=== PATIENT | female | born 1990 | race Asian ===

== ENCOUNTER → 2016-03-23 | Outpatient (CLI) | payer OTHER ==
[~2016-03-23] MED LIST: APR25 PO; HYDR-4715 PO; INDSR60 PO; MAGNEVIST IV PRN; MISC1TAB29; MISC1TAB29 PO; PRED10TA PO; PROP20TA67 PO; RXC5 PO; [UNRECOGNIZED DRUG - CODE] PO
--- NOTE | 2016-03-23 17:18 | DIAGNOSTIC IMAGING REPORT ---
BRAIN AND PITUITARY MRI WITH AND WITHOUT INTRAVENOUS CONTRAST HISTORY: Zacarias disease with tumor removal. TECHNIQUE: Multiplanar multisequence MRI of the brain and pituitary gland were performed both before and after the intravenous administration of contrast. Dynamic postcontrast imaging through the pituitary fossa was also obtained. COMPARISON STUDY: None. FINDINGS: No areas of restricted diffusion to suggest acute infarction. The paranasal sinuses and mastoid air cells are clear. No mass, hematoma, midline shift, acute infarct. Small patchy areas of increased T2 signal within the bilateral posterior occipital lobes predominantly within the subcortical white matter. There may be a small amount of encephalomalacia. Therefore, this favors gliosis from old trauma or an old infarct. The major vascular flow-voids at the skull base are well-maintained. The ventricles are normal in size. No abnormal enhancement. There is a small rind of tissue within the sella to suggest. This could be due to a partially empty sella or postoperative change. The pituitary stalk is normal and course and caliber. There are no suprasellar masses identified. No abnormal enhancement within the pituitary fossa. IMPRESSION: 1. Small patchy areas of increased T2 signal within the bilateral posterior occipital lobes. There may be a small amount of encephalomalacia. Therefore, this favors gliosis from old trauma or an old infarct. Comparison to prior studies recommended for further evaluation. If no prior studies than 3 month follow can be performed to ensure stability. 2. There is only a small rind of tissue remaining within the sella turcica. This could be due to postoperative change or a partially empty sella. No suprasellar masses identified. Electronically signed by: Mian Hamlin M.D. 03/24/2016 9:34 AM Dictated Date/Time: 03/23/2016 5:08 PM
== END | disposition home or self-care (01) ==
LOC: C.MRI 16:04
PROVIDERS: ATTEND Internal Medicine Endocrinology, Diabetes & Metabolism
DX: E24.0 Pituitary-dependent Cushing's disease (principal)

== ENCOUNTER 2016-09-24 23:41 | Inpatient (IN) | payer OTHER ==
[~2016-09-24] VITALS: Ht 144.8 cm; Wt 55.5 kg
[2016-09-25] VITALS (16 sets, daily range): BP systolic 114–205; BP diastolic 75–142; PULSE 77–100; TEMP 36.5–37; O2SAT 95–100; Ht 144.8 cm; Wt 55.5 kg
[2016-09-25] MEDS ORDERED: HydrALAZINE HCL 20 MG/ML VIAL IV. STA ×2 (00:31→03:50)
[2016-09-25] MEDS ORDERED: SODIUM CHLORIDE 0.9% 1000ML 1,000 ML IV SCH (00:31)
[2016-09-25] MEDS ORDERED: HYDR-4715 PO (00:34)
[2016-09-25] MEDS ORDERED: PROP20TA67 PO (00:36)
[2016-09-25] MEDS ORDERED: [UNRECOGNIZED DRUG - CODE] PO (00:37)
[2016-09-25 00:42] LABS: BASO % 0.5 %; BASO ABS # 0.06 K/uL (0-0.2); COMPLETE YES; EOS % 3.3 %; HEMATOCRIT 42.9 % (37-47); IG% 0.5 %; LYMPH % 27.2 %; LYMPH ABS # 3.01 K/uL (1.2-3.4); MEAN CORPUSCULAR HEMOGLOBIN 24.1 pg (25-34); MEAN CORPUSCULAR HGB CONC 33.1 g/dl (32-36); MEAN PLATELET VOLUME 9.5 fL (7.4-10.4); MONO % 9.1 %; NEUT % 59.4 %; PLATELET COUNT 354 K/uL (130-400); RED BLOOD COUNT 5.88 M/uL (4.2-5.4); WHITE BLOOD COUNT 11.07 K/uL (4.8-10.8)
[2016-09-25 00:57] LABS: INR 0.9 (0.9-1.1); PROTHROMBIN TIME (PATIENT) 9.9 SECONDS (9.0-12.0)
[2016-09-25 01:00] LABS: BLOOD UREA NITROGEN 24 mg/dl (7-18); CALCIUM 9.1 mg/dl (8.5-10.1); CARBON DIOXIDE 23 mmol/L (21-32); CHLORIDE 106 mmol/L (98-107); GLUCOSE 83 mg/dl (70-99); POTASSIUM 4.1 mmol/L (3.5-5.1); SODIUM 139 mmol/L (136-145)
[2016-09-25] MEDS ORDERED: MISC1TAB29 (01:06)
[2016-09-25] MEDS ORDERED: MISC1TAB29 PO (01:07)
[2016-09-25 01:12] LABS: PREG INTERNAL NEGATIVE QC NEG CLEAR BACKGROUND; PREG INTERNAL POSITIVE QC POS CONTROL LINE
[2016-09-25] MEDS ORDERED: MoRPHine SULFATE 4 MG/ML 1 ML CARP\\VIAL IV STA (01:17)
[2016-09-25] MEDS ORDERED: ONDANSETRON INJ 2 MG/ML 2 ML VIAL IV STA ×2 (01:17→03:31)
[2016-09-25] MEDS ORDERED: GADAVIST IV PRN (05:15)
[2016-09-25] MEDS ORDERED: DiphenhydrAMINE HCL 50 MG/ML VIAL IV STA (05:46)
[2016-09-25] MEDS ORDERED: METOCLOPRAMIDE HCL INJ 5 MG/ML 2 ML VIAL IV STA (05:46)
--- NOTE | 2016-09-25 06:34 | EMERGENCY ROOM VISIT NOTE ---
History First contact with patient: 00:08 Chief Complaint: HEADACHE Stated Complaint: MIGRAINE History of Present Illness The patient is a 26 year old female who presents to the Emergency Room with complaints of headache for the past week that has been intermittent who saw health services and was told that she had high blood pressure. She started on hydralazine 20 mg twice a day. She follows with Dr. Scales from endocrinology for her questions disease. 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 Nothing recently. She's had radioablation in the past back in [facility] in 2010. Patient denies loss of vision, change in vision, numbness, tingling, chest pain, dyspnea, balance problems, weakness, abdominal pain, vomiting, diarrhea, fever, chills, cold symptoms. She describes a headache as throbbing, ranging in severity 8 out of 10 throughout her temporal region. She states her blood pressure the other day was 160/100. She states is very high for her today as her blood pressure is 240/140. Review of Systems See HPI for pertinent positives & negatives. A total of 10 systems reviewed and were otherwise negative. Past Medical/Surgical History Zacarias's disease Social History Smoking Status: Never Smoker Smokeless Tobacco Use: No Alcohol Use: none Drug Use: none Occupation Status: [employer] student Current/Historical Medications Scheduled Desogestrel-Ethinyl Estradiol (Kimidess 0.15-0.02/0.01 mg (02/08)), 1 TAB PO DAILY Hydralazine Hcl (Apresoline), 20 MG PO BID Misc Natural Products (Cortisol Rn Postpartum), 100 MG PO BID Propranolol (Inderal), 20 MG PO BID Allergies Uncoded Allergies: CONTRAST MEDIA (Allergy, Intermediate, SWELLING, ITCHING, 09/25/16) Physical Exam Vital Signs Date Time Temp Pulse Resp B/P (MAP) Pulse Ox O2 Delivery O2 Flow Rate FiO2 09/25/16 06:31 84 18 175/125 98 Room Air 09/25/16 06:00 87 20 164/132 97 Room Air 09/25/16 05:30 80 18 151/116 100 Room Air 09/25/16 05:12 83 20 149/112 98 Room Air 09/25/16 04:57 83 20 166/127 99 Room Air 09/25/16 04:32 76 20 196/145 100 Room Air 09/25/16 02:01 81 20 167/122 96 Room Air 09/25/16 01:27 87 20 185/126 99 Room Air 09/25/16 01:01 83 16 190/140 100 Room Air 09/25/16 01:00 99 Room Air 09/25/16 00:15 81 09/24/16 23:54 36.8 82 20 213/145 99 Room Air Physical Exam VITALS: Vitals are noted on the nurse's note and reviewed by myself. Vital signs hypertensive. GENERAL: Pleasant female, in no acute distress, nondiaphoretic, well-developed well-nourished. SKIN: The skin was without rashes, erythema, edema, or bruising. There is no tenting of the skin. Capillary reflex less than 2 seconds. HEAD: Normocephalic atraumatic. EARS: External auditory canals clear, tympanic membranes pearly lerner without erythema or effusion bilaterally. EYES: Pupils equal round and reactive to light and accommodation. Conjunctivae without injection, sclerae without icterus. Extraocular movements intact. NOSE: Patent, turbinates without inflammation or discharge. No sinus tenderness. MOUTH: Mucous membranes moist. Pharynx without erythema or exudate. Uvula midline. Airway patent. Tongue does not deviate. NECK: Supple without nuchal rigidity. No lymphadenopathy. No thyromegaly. Cervical spine is nontender. No JVD. No meningeal signs HEART: Regular rate and rhythm without murmurs gallops or rubs. LUNGS: Clear to auscultation bilaterally without wheezes, rales or rhonchi. No dullness to percussion. No retractions or accessory muscle use. ABDOMEN: Positive bowel sounds x 4. Normal tympanic percussion. Soft, nontender, without masses or organomegaly. Ching sign negative. No guarding or rebound tenderness. MUSCULOSKELETAL: No muscle atrophy, erythema, or edema noted. NEURO: Patient was alert and oriented to person place and time. Normal sensation to light and sharp touch. No focal neurological deficits. Cranial nerves II-12 grossly intact. No pronator drift cerebellar exam intact. Medical Decision & Procedures Laboratory Results 09/25/16 00:05 Red Blood Count 5.88, Mean Corpuscular Volume 73.0, Mean Corpuscular Hemoglobin 24.1, Mean Corpuscular Hemoglobin Concent 33.1, Mean Platelet Volume 9.5, Neutrophils (%) (Auto) 59.4, Lymphocytes (%) (Auto) 27.2, Monocytes (%) (Auto) 9.1, Eosinophils (%) (Auto) 3.3, Basophils (%) (Auto) 0.5, Neutrophils # (Auto) 6.57, Lymphocytes # (Auto) 3.01, Monocytes # (Auto) 1.01, Eosinophils # (Auto) 0.36, Basophils # (Auto) 0.06 09/25/16 00:05 Test 09/25/16 00:05 White Blood Count 11.07 K/uL (4.8-10.8) Red Blood Count 5.88 M/uL (4.2-5.4) Hemoglobin 14.2 g/dL (12.0-16.0) Hematocrit 42.9 % (37-47) Mean Corpuscular Volume 73.0 fL (80-100) Mean Corpuscular Hemoglobin 24.1 pg (25-34) Mean Corpuscular Hemoglobin Concent 33.1 g/dl (32-36) Platelet Count 354 K/uL (130-400) Mean Platelet Volume 9.5 fL (7.4-10.4) Neutrophils (%) (Auto) 59.4 % Lymphocytes (%) (Auto) 27.2 % Monocytes (%) (Auto) 9.1 % Eosinophils (%) (Auto) 3.3 % Basophils (%) (Auto) 0.5 % Neutrophils # (Auto) 6.57 K/uL (1.4-6.5) Lymphocytes # (Auto) 3.01 K/uL (1.2-3.4) Monocytes # (Auto) 1.01 K/uL (0.11-0.59) Eosinophils # (Auto) 0.36 K/uL (0-0.5) Basophils # (Auto) 0.06 K/uL (0-0.2) RDW Standard Deviation 42.7 fL (36.4-46.3) RDW Coefficient of Variation 16.5 % (11.5-14.5) Immature Granulocyte % (Auto) 0.5 % Immature Granulocyte # (Auto) 0.06 K/uL (0.00-0.02) Prothrombin Time 9.9 SECONDS (9.0-12.0) Prothromb Time International Ratio 0.9 (0.9-1.1) Activated Partial Thromboplast Time 26.0 SECONDS (21.0-31.0) Partial Thromboplastin Ratio 1.0 Anion Gap 10.0 mmol/L (3-11) Est Creatinine Clear Calc Drug Dose 50.6 ml/min Estimated GFR () 71.2 Estimated GFR (Non- 61.5 BUN/Creatinine Ratio 20.0 (10-20) Calcium Level 9.1 mg/dl (8.5-10.1) Troponin I < 0.015 ng/ml (0-0.045) Thyroid Stimulating Hormone (TSH) 2.210 uIu/ml (0.300-4.500) Human Chorionic Gonadotropin, Qual NEG (NEG) Medications Administered Medications (Trade) Dose Ordered Sig/Katarina Route Start Time Stop Time Status Last Admin Dose Admin Sodium Chloride 1,000 ml @ 50 mls/hr Q20H IV 09/25/16 00:31 10/25/16 00:30 09/25/16 00:31 50 MLS/HR Hydralazine HCl (HydrALAZINE INJ) 10 mg NOW STAT IV. 09/25/16 00:31 09/25/16 00:34 DC 09/25/16 00:31 10 MG Morphine Sulfate (MoRPHine SULFATE INJ) 4 mg NOW STAT IV 09/25/16 01:17 09/25/16 01:18 DC 09/25/16 01:22 4 MG Ondansetron HCl (Zofran Inj) 4 mg NOW STAT IV 09/25/16 01:17 09/25/16 01:18 DC 09/25/16 01:22 4 MG Ondansetron HCl (Zofran Inj) 4 mg NOW STAT IV 09/25/16 03:31 09/25/16 03:32 DC 09/25/16 03:31 4 MG Hydralazine HCl (HydrALAZINE INJ) 10 mg NOW STAT IV. 09/25/16 03:50 09/25/16 03:51 DC 09/25/16 03:50 10 MG Metoclopramide HCl (Reglan Inj) 10 mg NOW STAT IV 09/25/16 05:46 09/25/16 05:47 DC 09/25/16 05:54 10 MG Diphenhydramine HCl (Benadryl Inj) 25 mg NOW STAT IV 09/25/16 05:46 09/25/16 05:47 DC 09/25/16 05:54 25 MG ED Course Prior records/ancillary studies reviewed regarding the history above. Triage Nursing notes reviewed. Additional history obtained from the family. The patient's history was concerning for hypertension with headache. Differential diagnosis: Etiologies such as Cushings exacerbation, benign hypertension, hypertensive emergency, cardiovascular pathology, pheochromocytoma, electrolyte abnormality, renal disease, endorgan damage, acute intracranial bleed, CVA, postural headache, meningitis, encephalitis, mass or mass effect, sinusitis, infection, temporal arteritis, trigeminal neuralgia, pseudotumor cerebri, tension headache , cluster headache, carbon monoxide exposure, migraine, as well as others were entertained. Physical examination: As above. No signs of end organ damage. ER treatment provided: Hydralazine, morphine, Zofran, IV fluids On reassessment the patient felt better. Diagnostic interpretation by me: The electrocardiogram was negative for pathologic change. Normal sinus, normal intervals, no acute ST-T wave changes. Impression normal sinus rhythm interpreted by myself The labs revealed mild leukocytosis. Euthyroid. Negative troponin Imaging studies: MRI HEAD : Comparison: MRI 03/23/16. No significant interval change. No evidence of acute or subacute infarction. No evidence of intracranial hemorrhage. T2/FLAIR signal abnormality is seen within the occipital cortex bilaterally along with mild encephalomalacia. These findings are similar to prior MRI and likely related to remote injury. Otherwise, minimal periventricular and scattered white matter T2/FLAIR hyperintensity. Empty sella with thin rind of soft tissue at its inferior aspect, similar to prior. Normal enhancement of the pituitary stalk. T2 hyperintense, T1 hypointense 5 mm enhancing lesion at superior lateral aspect of right bony orbit is similar to prior MRI 03/23/16. Correlate with site of reported tumor removal from forehead. Radiologist: Slava Romero MD Head CT was reviewed and read by stat radiology that shows suggestion of low attenuation changes in the occipital lobes Consultation: A consultation was placed with Dr. Hernandes, hospitalist. The case was discussed and diagnostics were reviewed. The patient was evaluated in the ER for further treatment. This appears to be consistent with hypertensive urgency with intractable migraine. Patient will be evaluated by medicine for possible admission for poorly controlled blood pressure and migraine. Unchanged MRI of the brain.blood pressure slightly improved after several rounds of medications. She was neurovascularly and neurologically intact. By the evaluation outlined above emergent etiologies such as hypertensive emergency, pheochromocytoma, endorgan damage, cardiac ischemia, aortic dissection, pulmonary embolism, pneumonia, pneumothorax, infections, gastrointestinal, as well as others were deemed relatively unlikely. The pt informed about the findings as listed above. All questions were answered and pleased with the treatment. Case reviewed with my attending. Medical Decision As above Impression Primary Impression: Hypertensive urgency Additional Impression: Migraine Departure Information Dispostion Being Evaluated By Hospitalist Condition formerly [facility] (PCP) Patient Instructions My [facility] Problem Qualifiers Additional Impression: Migraine Migraine type: without aura Intractability: intractable
--- NOTE | 2016-09-25 06:52 | DIAGNOSTIC IMAGING REPORT ---
MRI OF THE BRAIN AND PITUITARY WITHOUT A WITH GADOLINIUM CLINICAL HISTORY: Headache, hypertension. Abnormal head CT. History of crushing disease with tumor removal COMPARISON STUDY: 03/23/2016, head CT dated 09/25/2016 FINDINGS: Imaging was performed in the sagittal axial and coronal planes before and after the administration of 5.5 cc of intravenous Gadavist. No intra or extra-axial mass lesions are visualized. Axial diffusion-weighted images reveal chronic foci of increased signal within the occipital lobes. There is no corresponding decreased signal on the ADC map. The findings are felt to represent T2 shine through. There are no findings to indicate acute infarct. Proton density T2-weighted and FLAIR images reveal foci of increased T2 signal within the occipital lobes consistent with nonspecific encephalomalacia. There are no hemorrhagic products present. Postcontrast images reveal no pathologically enhancing intracranial masses. There are postsurgical changes involving the pituitary. The infundibulum is within the midline. The optic chiasm appears normal. No pathologic sellar masses are visualized. There is a stable 5 mm enhancing nodule within the superior lateral aspect of the right orbit. IMPRESSION: 1. No significant change compared to the prior MRI study 2. Foci of increased T2 signal within the posterior occipital lobes consistent with encephalomalacia 3. No evidence of recurrent pituitary tumor 4. Stable nonspecific 5 mm enhancing focus within the superior lateral aspect of the right orbit Electronically signed by: Justo Almonte M.D. 09/25/2016 6:51 AM Dictated Date/Time: 09/25/2016 6:43 AM
--- NOTE | 2016-09-25 07:09 | DIAGNOSTIC IMAGING REPORT ---
HEAD WITHOUT CONTRAST (CT) HISTORY: 18-year-old female presents with hypertension and headache with . TECHNIQUE: Multiple axial CT images of the head were obtained without contrast. CT DOSE: 537.48 mGy.cm COMPARISON: MRI 09/25/2016 and 03/23/2016. FINDINGS: No acute intracranial hemorrhage, midline shift, mass, large territorial ischemia or abnormal extra-axial collection. Ill-defined areas of low-attenuation are present within the cortical, subcortical and periventricular white matter of the occipital lobes are somewhat symmetric distribution, nicely seen on images 12 through 15 of the axial series. There also appears to be a ill-defined low-attenuation of the central selvin as seen on image 6 of the axial series, likely artifactual. 2 mm hyperattenuating focus of the right caudate nucleus appears to reflect calcification density and is nonspecific. The calvarium is intact. The paranasal sinuses, mastoid air cells, and middle ear cavities are clear. IMPRESSION: 1. No acute intracranial abnormality. 2. Low-attenuation involving the bilateral occipital lobes, unchanged from MRI compatible with encephalomalacia. Please see MRI study of same day for further details. The above report was generated using voice recognition software. It may contain grammatical, syntax or spelling errors. Electronically signed by: Robert Kendall M.D. 09/25/2016 7:07 AM Dictated Date/Time: 09/25/2016 6:58 AM
[2016-09-25] MEDS ORDERED: KETOROLAC TROMETHAMINE 30 MG/ML VIAL IV STA (07:33)
[2016-09-25] MEDS ORDERED: HYDROmorphone INJ 0.5 MG/0.5 ML SYR IV PRN (07:45)
[2016-09-25] MEDS ORDERED: PEDIATRIC DILUENT IV ONE (07:45)
[2016-09-25] MEDS ORDERED: ACETAMINOPHEN 325 MG TAB PO PRN (07:45)
[2016-09-25] MEDS ORDERED: MAGNESIUM HYDROXIDE SUSP 30 ML UDC PO PRN (07:45)
[2016-09-25] MEDS ORDERED: POLYETHYLENE (MIRALAX) 17 GM PACK PO PRN (07:45)
[2016-09-25] MEDS ORDERED: METHYLPREDNISOLONE IV ONE (07:45)
[2016-09-25] MEDS ORDERED: METHYLPREDNISOLONE 125 MG VIAL ONE (07:46)
[2016-09-25] MEDS ORDERED: KETOROLAC TROMETHAMINE 30 MG/ML VIAL ONE (07:46)
[2016-09-25] MEDS ORDERED: MAGNESIUM SULFATE 1GM / D5W 1 GM BAG ONE (07:46)
--- NOTE | 2016-09-25 07:46 | History and Physical ---
History & Physical Date & Time of Service: Sep 25, 2016 at 07:39 Chief Complaint: Migraine [facility] of Present Illness Source: patient, family 26-year-old female with a history of a pituitary adenoma resected for Zacarias's disease treated with this resection and radioablation in [place] in 2010. The patient presents with one-week history of worsening headache which she describes as throbbing retro-orbital bilateral preceded by visual aura. The patient states that [facility] recently reduced her migraine prophylactic medication. Patient denies any other changes in her health or health history, no medical indiscretion or medicine omission. In the emergency room the patient was markedly hypertensive, and did not respond to attempts at lowering blood pressure or controlling pain. The patient had imaging studies including an MRI and CT scan which although showing chronic changes showed no acute changes. The patient is agreeable for admission for blood pressure control and symptom management. Social History Smoking Status: Never Smoker Smokeless Tobacco Use: No Drug Use: none Occupational Status: [employer] student Allergies Uncoded Allergies: CONTRAST MEDIA (Allergy, Intermediate, SWELLING, ITCHING, 09/25/16) Home Medications Scheduled Desogestrel-Ethinyl Estradiol (Kimidess 0.15-0.02/0.01 mg (02/08)), 1 TAB PO DAILY Hydralazine Hcl (Apresoline), 20 MG PO BID Misc Natural Products (Cortisol Graphics Production Specialist), 100 MG PO BID Propranolol (Inderal), 20 MG PO BID Review of Systems ROS: well nourished well developed No double vision blurry vision but did have visual RI1 day prior to admission Headache is throbbing retro-orbital bilateral 8/10 in pain, associated photophobia No problems with speech or swallowing No palpitations, chest pain or pressure No Wheezing or breathing issues No abdominal pain nausea vomiting diarrhea changes in appetite or weight No burning urine urine frequency or changes in color No focal joint pain or muscle pain No skin rashes or oral lesions No unusual bruising or bleeding No focused back pain or numbness or loss of strength No changes in memory or confusion Physical Exam Vital Signs Date Time Temp Pulse Resp B/P (MAP) Pulse Ox O2 Delivery O2 Flow Rate FiO2 09/25/16 06:31 84 18 175/125 98 Room Air 09/25/16 06:00 87 20 164/132 97 Room Air 09/25/16 05:30 80 18 151/116 100 Room Air 09/25/16 05:12 83 20 149/112 98 Room Air 09/25/16 04:57 83 20 166/127 99 Room Air 09/25/16 04:32 76 20 196/145 100 Room Air 09/25/16 02:01 81 20 167/122 96 Room Air 09/25/16 01:27 87 20 185/126 99 Room Air 09/25/16 01:01 83 16 190/140 100 Room Air 09/25/16 01:00 99 Room Air 09/25/16 00:15 81 09/24/16 23:54 36.8 82 20 213/145 99 Room Air General Appearance: WD/WN, + moderate distress Head: normocephalic, atraumatic Eyes: PERRL, EOMI ENT: hearing grossly normal, pharynx normal Neck: supple, no JVD Respiratory/Chest: chest non-tender, lungs clear, normal breath sounds Cardiovascular: regular rate, rhythm, no murmur Abdomen/GI: normal bowel sounds, non tender, soft Extremities/Musculoskelatal: normal inspection, no calf tenderness Neurologic/Psych: associate spa director II-XII nml as tested, alert, oriented x 3 Skin: normal color, warm/dry, no rash Diagnostics Laboratory Results Results Past 24 Hours Test 09/25/16 00:05 Range/Units White Blood Count 11.07 4.8-10.8 K/uL Red Blood Count 5.88 4.2-5.4 M/uL Hemoglobin 14.2 12.0-16.0 g/dL Hematocrit 42.9 37-47 % Mean Corpuscular Volume 73.0 80-100 fL Mean Corpuscular Hemoglobin 24.1 25-34 pg Mean Corpuscular Hemoglobin Concent 33.1 32-36 g/dl Platelet Count 354 130-400 K/uL Mean Platelet Volume 9.5 7.4-10.4 fL Neutrophils (%) (Auto) 59.4 % Lymphocytes (%) (Auto) 27.2 % Monocytes (%) (Auto) 9.1 % Eosinophils (%) (Auto) 3.3 % Basophils (%) (Auto) 0.5 % Neutrophils # (Auto) 6.57 1.4-6.5 K/uL Lymphocytes # (Auto) 3.01 1.2-3.4 K/uL Monocytes # (Auto) 1.01 0.11-0.59 K/uL Eosinophils # (Auto) 0.36 0-0.5 K/uL Basophils # (Auto) 0.06 0-0.2 K/uL RDW Standard Deviation 42.7 36.4-46.3 fL RDW Coefficient of Variation 16.5 11.5-14.5 % Immature Granulocyte % (Auto) 0.5 % Immature Granulocyte # (Auto) 0.06 0.00-0.02 K/uL Prothrombin Time 9.9 9.0-12.0 SECONDS Prothromb Time International Ratio 0.9 0.9-1.1 Activated Partial Thromboplast Time 26.0 21.0-31.0 SECONDS Partial Thromboplastin Ratio 1.0 Sodium Level 139 136-145 mmol/L Potassium Level 4.1 3.5-5.1 mmol/L Chloride Level 106 98-107 mmol/L Carbon Dioxide Level 23 21-32 mmol/L Anion Gap 10.0 3-11 mmol/L Blood Urea Nitrogen 24 7-18 mg/dl Creatinine 1.20 0.60-1.20 mg/dl Est Creatinine Clear Calc Drug Dose 50.6 ml/min Estimated GFR () 71.2 Estimated GFR (Non- 61.5 BUN/Creatinine Ratio 20.0 10-20 Random Glucose 83 70-99 mg/dl Calcium Level 9.1 8.5-10.1 mg/dl Troponin I < 0.015 0-0.045 ng/ml Thyroid Stimulating Hormone (TSH) 2.210 0.300-4.500 uIu/ml Human Chorionic Gonadotropin, Qual NEG NEG Diagnostic Radiology MRI scan compared to March 2016 shows no significant interval change there is mild encephalomalacia within the occipital cortex bilaterally minimal periventricular white matter hyperintensity empty sella 5 mm enhancing lesion in the superior lateral aspect of the right bony orbit similar to March [address] scan shows no intracranial hemorrhage encephalomalacia in this upper lobes Normal EKG (there is a Q-wave inferiorly but this does not seem to be clinically significant) Impression Assessment and Plan 26-year-old female with hypertensive urgency and intractable headache history of migraines and pituitary disease Patient's laboratories are stable suggesting her pituitary axis is intact, imaging studies of her brain did not show any new changes, we will proceed to control blood pressure and attempt to treat a migraine exacerbation Neurology will be involved both as an inpatient consult and outpatient follow-up DVT prevention will be early ambulation. VTE Prophylaxis VTE Risk Assessment Done? Y/N: Yes Risk Level: Moderate Given or contraindicated: Treatment not indicated
[2016-09-25] MEDS ORDERED: MAGNESIUM SULFATE 1GM / D5W 1 GM in PREMIXED IN D5W 100 ML IV ONE (08:30)
[2016-09-25] MEDS: PROPRANOLOL HCL 20 MG TAB PO SCH (09:00)
[2016-09-25] MEDS: HydrALAZINE 10 MG TAB PO SCH (09:00)
[2016-09-25] MEDS ORDERED: PROPRANOLOL HCL 20 MG TAB PO SCH (09:00)
[2016-09-25] MEDS: HydrALAZINE HCL 20 MG/ML VIAL IV PRN ×2 (10:18→16:21)
[2016-09-25] MEDS: HYDROmorphone INJ 1 MG/ML SYR IV PRN ×2 (10:30→18:00)
[2016-09-25] MEDS: ONDANSETRON INJ 2 MG/ML 2 ML VIAL IV PRN ×2 (10:33→17:00)
--- NOTE | 2016-09-25 11:26 | Neurology Consultation ---
Neurology Consultation Date of Consultation: Sep 25, 2016. Attending Physician: Yordy Bravo M.D. Primary Care Physician: [facility] Reason for Consultation: Patient is a 26-year-old, who was asked to see at the request of Dr. Bravo, for neurologic consultation regarding acute refractory migraine headaches. History of Present Illness Source: patient, caregiver, clinic records, hospital records This patient started getting migraine headaches at age 11. It continues that occurred about once a year. In fact, from her late teens until her early 20s ( for 3-4 years) she had no headaches. She then started getting migraines began in her 20s. Currently, the headaches, since 2013, have been about once a month with her menstrual cycle. A typical headache consists of a visual aura of flashing lights lasting anywhere from a few minutes to 15 minutes, this resolves and is followed by a headache. It could be a unilateral or bilateral pain with nausea, photophobia and rarely vomiting or sonophobia. They can last up to hours but medication tends to help. She has no help with [id number] medications but sumatriptan 100 mg would help. In 2010, because of [place]'s disease, she underwent a transsphenoidal pituitary resection for microadenoma followed by stereotactic focal radiotherapy. She has seen endocrinology was hormonal replacement since. Currently, she sees Dr. Scales for endocrinology follow-up. Patient has had hypertension since 2013, when she had a recurrence of Zacarias's symptoms. She has been on Aldactone, propranolol, and dexamethasone. More recently, because of hypertension, she's been put on hydralazine. For the last week she's had severe throbbing bitemporal headaches and bilateral retro-orbital pain with bioccipital pain. There has been photophobia and sonophobia and nausea and vomiting. Her blood pressure is been markedly elevated. On September 24, at 2354 hours, temperature was 36.8, pulse 82 and regular, respiratory rate 20, blood pressure 213/145, and O2 saturation 99%. In the emergency room she did not have any encephalopathy, focal neurologic signs, meningeal signs. She remained afebrile. Blood pressures remain markedly elevated. Despite treatment, it was 175/125 minute 0631 hours. She's been given IV and by mouth hydralazine. CT scan of the head showed bioccipital encephalomalacia. MRI of the brain showed the bioccipital changes consistent with encephalomalacia or scarring. This was no change from the previous MRI of March 2016. CBC showed a mildly elevated white count, normal chemistry profile with a creatinine of 1.2 and TSH 2.2. Currently, the patient is without headache but just received Dilantin to previously 30 minutes ago. She is very sleepy and tired from the medication she received in the emergency room. She is lightheaded without vertigo. She denies diaphoresis or tremor. Past Medical/Surgical History Medical Problems: (1) Hypertensive urgency Status: Acute (2) Migraine Status: Acute Post pituitary microadenoma resection 2010 for [place]'s disease followed by stereotactic radiation therapy. This was done in her home country of [facility]. History of hypertension History of intermittent migraine headaches Iron deficiency Dyslipidemia Osteoporosis Family History Mother, age 52, has migraine headaches Father, age 55, has hypertension 25-year-old sister has migraines Social History The patient has never smoked cigarettes or use tobacco products and does not drink alcohol. 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 Except for some tiny amounts of chloroform, she is not exposed to any toxins. She has never been . Smoking Status: Never smoker Smokeless Tobacco Use: No Alcohol Use: none Drug Use: none Marital Status: single Housing Status: lives alone Occupation Status: [employer] student Allergies Coded Allergies: Iodinated Diagnostic Agents (Unverified Allergy, Intermediate, SWELLING, ITCHING, 09/25/16) Current Inpatient Medications Current Inpatient Medications Medications (Trade) Dose Ordered Sig/[place] Route Start Time Stop Time Status Last Admin Dose Admin Gadobutrol (Gadavist) 5.5 mmol UD PRN IV 09/25/16 05:15 09/29/16 05:14 Hydralazine HCl (Apresoline Tab) 20 mg BID PO 09/25/16 09:00 10/25/16 08:59 09/25/16 09:00 20 MG Miscellaneous Information (Order Awaiting Action) 1 ea QS N/A 09/25/16 16:00 10/25/16 15:59 Propranolol HCl (Inderal Tab) 40 mg BID PO 09/25/16 09:00 10/25/16 08:59 09/25/16 09:00 40 MG Acetaminophen (Tylenol Tab) 650 mg Q4H PRN PO 09/25/16 07:45 10/25/16 07:44 Magnesium Hydroxide (Milk Of Magnesia Susp) 30 ml Q12H PRN PO 09/25/16 07:45 10/25/16 07:44 Ondansetron HCl (Zofran Inj) 4 mg Q6H PRN IV 09/25/16 07:45 10/25/16 07:44 09/25/16 10:33 4 MG Polyethylene (Miralax Powder Packet) 17 gm DAILY PRN PO 09/25/16 07:45 10/25/16 07:44 Ketorolac Tromethamine (Toradol Inj) 30 mg Q6H PRN IV 09/25/16 07:45 09/30/16 07:44 Hydromorphone HCl (Dilaudid Inj) 1 mg Q4 PRN IV 09/25/16 07:45 10/09/16 07:44 09/25/16 10:30 1 MG Hydromorphone HCl (Dilaudid Inj) 0.5 mg Q4 PRN IV 09/25/16 07:45 10/09/16 07:44 Hydralazine HCl (HydrALAZINE INJ) 20 mg Q4H PRN IV 09/25/16 07:45 10/25/16 07:44 09/25/16 10:18 20 MG Review of Systems Constitutional: + weakness, + fatigue Eyes: No worsening of vision, No diplopia ENT: No hearing loss, No tinnitus Respiratory: No cough, No shortness of breath Cardiovascular: No chest pain, No palpitations Abdomen: No pain, No nausea Musculoskeletal: No joint pain, No muscle pain Genitourinary - Female: No dysuria, No urinary incontinence Neurologic: + weakness, + balance problems, No memory loss, No numbness/ tingling, No vertigo Psychiatric: No depression symptoms, No anxiety Endocrine: + fatigue Hematologic / Lymphatic: No abnormal bleeding/bruising Integumentary: No rash Allergic / Immunologic: No hives Physical Exam Vital Signs (Past 24 Hrs): Date Time Temp Pulse Resp B/P (MAP) Pulse Ox O2 Delivery O2 Flow Rate FiO2 09/25/16 10:45 36.8 100 16 144/100 (115) 98 Room Air 09/25/16 10:15 36.8 98 18 148/98 (115) 100 Room Air 09/25/16 09:45 36.8 90 18 160/125 (137) 100 Room Air 09/25/16 09:30 36.7 95 18 164/118 (133) 100 Room Air 09/25/16 09:15 36.6 91 15 186/142 (157) 99 Room Air 09/25/16 09:00 36.7 83 16 205/136 100 Room Air 09/25/16 09:00 36.7 83 18 205/136 (159) 100 Room Air 09/25/16 08:29 72 16 165/118 100 09/25/16 07:47 75 14 180/141 100 Room Air 09/25/16 06:31 84 18 175/125 98 Room Air 09/25/16 06:00 87 20 164/132 97 Room Air 09/25/16 05:30 80 18 151/116 100 Room Air 09/25/16 05:12 83 20 149/112 98 Room Air 09/25/16 04:57 83 20 166/127 99 Room Air 09/25/16 04:32 76 20 196/145 100 Room Air 09/25/16 02:01 81 20 167/122 96 Room Air 09/25/16 01:27 87 20 185/126 99 Room Air 09/25/16 01:01 83 16 190/140 100 Room Air 09/25/16 01:00 99 Room Air 09/25/16 00:15 81 09/24/16 23:54 36.8 82 20 213/145 99 Room Air The patient is right-handed. Although sleepy, she can be aroused with voice and balance to be fairly awake and alert. Speech is normal without aphasia or dysarthria. Mentation and thought processes are intact with orientation and normal fund of knowledge. Mood and affect are normal and appropriate. Appearance and grooming are normal. The discs are somewhat difficult to visualize because of patient intolerance to bright light but seemed sharp with positive venous pulsations. There are no obvious exudates, hemorrhages, or blood vessel changes seen. Pupils are 4mm bilaterally and reactive to light. Extraocular eye muscles are intact without nystagmus. Visual acuity and visual nicholas seem normal grossly to confrontation. There are no deficits to sensation of the face bilaterally. Corneal reflexes are positive bilaterally. Facial strength and symmetry is normal bilaterally. Hearing seems intact grossly to voice and finger rub. Palate moves well without asymmetry. There is normal sternocleidomastoid and trapezius strength bilaterally. Tongue is midline with good strength bilaterally. Neck is with full range of motion without discomfort. There are no cervical bruits. There are no cranial or ocular bruits. Heart is without murmur. Cervical, thoracic, and lumbar spine are nontender to palpation. Gait is not specifically tested because she was so lightheaded with standing but her stance is fairly stable on her own. With outstretched arms there is no drift. There are no resting, postural, or action tremors. There is no ataxia with [id number] testing. There is good facility in the hands. There are no abnormal involuntary movements noted. Motor strength is 5/5 diffusely in the arms bilaterally including deltoids, biceps, brachioradialis, wrist flexors and extensors, behaviorist, and intrinsic hand muscles. Motor strength is 5/5 diffusely in the legs bilaterally including hip flexors, quadriceps, hamstring, gastrocnemius, tibialis anterior, tibialis posterior, and peroneii muscles bilaterally. Toe extensors are normal and there is good bulk in the extensor digitorum brevis muscle bilaterally. The limbs have good tone without rigidity or spasticity, and there is no atrophy noted. Muscle bulk is normal, there is no tenderness, no myotonia noted to percussion, and no fasciculations seen. Sensory examination is intact to pin and touch throughout all four limbs. Reflexes are 1/4 in the biceps, triceps, brachioradialis, quadriceps, and Achilles tendons bilaterally. Toes are downgoing with plantar stimulation bilaterally. Peripheral pulses are present and of normal quality distally in all four limbs. There is no peripheral edema noted. Laboratory Results Past 24 Hours: 09/25/16 00:05 Red Blood Count 5.88, Mean Corpuscular Volume 73.0, Mean Corpuscular Hemoglobin 24.1, Mean Corpuscular Hemoglobin Concent 33.1, Mean Platelet Volume 9.5, Neutrophils (%) (Auto) 59.4, Lymphocytes (%) (Auto) 27.2, Monocytes (%) (Auto) 9.1, Eosinophils (%) (Auto) 3.3, Basophils (%) (Auto) 0.5, Neutrophils # (Auto) 6.57, Lymphocytes # (Auto) 3.01, Monocytes # (Auto) 1.01, Eosinophils # (Auto) 0.36, Basophils # (Auto) 0.06 09/25/16 00:05 Test 09/25/16 00:05 White Blood Count 11.07 K/uL (4.8-10.8) Red Blood Count 5.88 M/uL (4.2-5.4) Hemoglobin 14.2 g/dL (12.0-16.0) Hematocrit 42.9 % (37-47) Mean Corpuscular Volume 73.0 fL (80-100) Mean Corpuscular Hemoglobin 24.1 pg (25-34) Mean Corpuscular Hemoglobin Concent 33.1 g/dl (32-36) Platelet Count 354 K/uL (130-400) Mean Platelet Volume 9.5 fL (7.4-10.4) Neutrophils (%) (Auto) 59.4 % Lymphocytes (%) (Auto) 27.2 % Monocytes (%) (Auto) 9.1 % Eosinophils (%) (Auto) 3.3 % Basophils (%) (Auto) 0.5 % Neutrophils # (Auto) 6.57 K/uL (1.4-6.5) Lymphocytes # (Auto) 3.01 K/uL (1.2-3.4) Monocytes # (Auto) 1.01 K/uL (0.11-0.59) Eosinophils # (Auto) 0.36 K/uL (0-0.5) Basophils # (Auto) 0.06 K/uL (0-0.2) RDW Standard Deviation 42.7 fL (36.4-46.3) RDW Coefficient of Variation 16.5 % (11.5-14.5) Immature Granulocyte % (Auto) 0.5 % Immature Granulocyte # (Auto) 0.06 K/uL (0.00-0.02) Prothrombin Time 9.9 SECONDS (9.0-12.0) Prothromb Time International Ratio 0.9 (0.9-1.1) Activated Partial Thromboplast Time 26.0 SECONDS (21.0-31.0) Partial Thromboplastin Ratio 1.0 Anion Gap 10.0 mmol/L (3-11) Est Creatinine Clear Calc Drug Dose 50.6 ml/min Estimated GFR () 71.2 Estimated GFR (Non- 61.5 BUN/Creatinine Ratio 20.0 (10-20) Calcium Level 9.1 mg/dl (8.5-10.1) Troponin I < 0.015 ng/ml (0-0.045) Thyroid Stimulating Hormone (TSH) 2.210 uIu/ml (0.300-4.500) Human Chorionic Gonadotropin, Qual NEG (NEG) Imaging MRI OF THE BRAIN AND PITUITARY WITHOUT A WITH GADOLINIUM CLINICAL HISTORY: Headache, hypertension. Abnormal head CT. History of crushing disease with tumor removal COMPARISON STUDY: 03/23/2016, head CT dated 09/25/2016 FINDINGS: Imaging was performed in the sagittal axial and coronal planes before and after the administration of 5.5 cc of intravenous Gadavist. No intra or extra-axial mass lesions are visualized. Axial diffusion-weighted images reveal chronic foci of increased signal within the occipital lobes. There is no corresponding decreased signal on the ADC map. The findings are felt to represent T2 shine through. There are no findings to indicate acute infarct. Proton density T2-weighted and FLAIR images reveal foci of increased T2 signal within the occipital lobes consistent with nonspecific encephalomalacia. There are no hemorrhagic products present. Postcontrast images reveal no pathologically enhancing intracranial masses. There are postsurgical changes involving the pituitary. The infundibulum is within the midline. The optic chiasm appears normal. No pathologic sellar masses are visualized. There is a stable 5 mm enhancing nodule within the superior lateral aspect of the right orbit. IMPRESSION: 1. No significant change compared to the prior MRI study 2. Foci of increased T2 signal within the posterior occipital lobes consistent with encephalomalacia 3. No evidence of recurrent pituitary tumor 4. Stable nonspecific 5 mm enhancing focus within the superior lateral aspect of the right orbit Electronically signed by: Justo Almonte M.D. 09/25/2016 6:51 AM Dictated Date/Time: 09/25/2016 6:43 AM Impression 1. Severe, refractory migraine headache Patient has a history of intermittent migraines but these have been much worse over the last week. Currently, she has responded some to IV medication. She has no encephalopathy, focal neurologic signs, or meningeal signs. Her migraines are being made worse by her hypertension. She has a positive history of migraines intermittently since early teen years and a strong positive family history. 2. Severe hypertension, consistent with hypertensive urgency. There is no encephalopathy MRI does not show PRES. The MRI changes are old and reflect some scarring or encephalomalacia 3. MRI of the brain showing bioccipital scarring/encephalomalacia. Etiology of this is not readily apparent but may be related to postradiation It is not changed from her previous MRI of March 2016 4. [place]'s disease and other endocrine issues She has a history of pituitary microadenoma that was resected followed by radiation therapy. She is followed closely by endocrinology. Plan 1. Although sumatriptan helps her migraines, this should be avoided as long as her blood pressure is elevated. He can be resumed once the pressure is normalized. 2. While she has hypertension I would continue with intermittent Toradol as needed and use narcotics intermittently but sparingly. 3. I would change her control pill to something with low or no estrogen as this can help decrease migraines. 4. In lieu of her headache and hypertension, it may be reasonable to check for pheochromocytoma with 24-hour urine for catecholamines including epinephrine, norepinephrine, metanephrine, dopamine, VMA, and 5-HIAA 5. I would consider propranolol (60 mg LA twice a day) or verapamil (180 mg SR each morning) studies for migraine prophylaxis. 6. Steroids could be considered for breaking this headache cycle but it may keep her blood pressure elevated. I would give the equivalent of prednisone 60 the first day, 40 the second day, and 20 of the third day. I spoke with regarding this case including differential diagnoses and treatment options.
--- NOTE | 2016-09-25 11:30 | Medical Student: [facility] ---
Med Student History & Physical Date & Time of Service: Sep 25, 2016 at 11:10 Chief Complaint: Hypertensive Urgency Primary Care Physician: [facility] History of Present Illness Source: patient Ms. Franklin is a 26yo female with a medical history significant for Zacarias's disease, hypertension, and migraines who presented to the ED with a persistent headache for the past week, increasing frequency of migraines, and significantly elevated blood pressure (240/140 at time of arrival in the ED). Her headache is located in the back of the head and neck and spreads diffusely. Her migraines begin with b/l aura of flashing lights for about 15-20 minutes. Then, her migraine begins behind the right or both eyes and lasts for about 12hrs; they are associated with blurry vision, photophobia, sonophobia, nausea, and vomiting. She has had 3 migraines in the past week; she typically has 1 migraine per month on propranolol prophylaxis treatment; sumatriptan is used as abortive migraine therapy. BP was discovered on Wednesday (09/23/16) at the [facility] services to be significantly elevated and hydralazine was prescribed. Patient currently reports nausea, vomiting, and fatigue. Patient denies fever, chills, shortness of breath, and chest pain. 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 ) Allergies Coded Allergies: Iodinated Diagnostic Agents (Unverified Allergy, Intermediate, SWELLING, ITCHING, 09/25/16) Medications Desogestrel-Ethinyl Estradiol (Kimidess 0.15-0.02/0.01 mg (02/08)), 1 TAB PO DAILY Hydralazine Hcl (Apresoline), 20 MG PO BID Misc Natural Products (Cortisol Technician Terminal [employer] Repeater), 100 MG PO BID Propranolol (Inderal), 20 MG PO BID Review of Systems Constitutional: + weakness, No fever, No chills, No sweats Eyes: No worsening of vision, No eye pain ENT: No hearing loss, No nasal symptoms, No tinnitus Respiratory: No cough, No sputum, No wheezing, No shortness of breath, No dyspnea on exertion Cardiovascular: No chest pain, No orthopnea, No edema Abdomen: + nausea, + vomiting, No pain, No diarrhea, No constipation Musculoskeletal: No joint pain, No muscle pain Neurologic: No memory loss, No numbness/tingling, No vertigo Hematologic / Lymphatic: No abnormal bleeding/bruising, No clotting problems Integumentary: No rash, No itch Physical Exam Vital Signs (24 Hours) Date Time Temp Pulse Resp B/P (MAP) Pulse Ox O2 Delivery O2 Flow Rate FiO2 09/25/16 10:45 36.8 100 16 144/100 (115) 98 Room Air 09/25/16 10:15 36.8 98 18 148/98 (115) 100 Room Air 09/25/16 09:45 36.8 90 18 160/125 (137) 100 Room Air 09/25/16 09:30 36.7 95 18 164/118 (133) 100 Room Air 09/25/16 09:15 36.6 91 15 186/142 (157) 99 Room Air 09/25/16 09:00 36.7 83 16 205/136 100 Room Air 09/25/16 09:00 36.7 83 18 205/136 (159) 100 Room Air 09/25/16 08:29 72 16 165/118 100 09/25/16 07:47 75 14 180/141 100 Room Air 09/25/16 06:31 84 18 175/125 98 Room Air 09/25/16 06:00 87 20 164/132 97 Room Air 09/25/16 05:30 80 18 151/116 100 Room Air 09/25/16 05:12 83 20 149/112 98 Room Air 09/25/16 04:57 83 20 166/127 99 Room Air 09/25/16 04:32 76 20 196/145 100 Room Air 09/25/16 02:01 81 20 167/122 96 Room Air 09/25/16 01:27 87 20 185/126 99 Room Air 09/25/16 01:01 83 16 190/140 100 Room Air 09/25/16 01:00 99 Room Air 09/25/16 00:15 81 09/24/16 23:54 36.8 82 20 213/145 99 Room Air General Appearance: WD/WN, + moderate distress Cardiovascular: regular rate, rhythm, no murmur Patient is right-handed. Mental status: Patient is alert and oriented to person, place, and time Speech , mood, and affect are normal. Cranial nerves: II: PERRL; no visual field deficits present; gross visual acuity intact. III, IV, : EOMI; no eye deviation at primary gaze. V: light touch intact in V1, 2, & 3 distributions. VII: facial muscles intact and symmetric with wrinkling forehead, tight eye closure, puffing cheeks out, and smiling. VIII: hearing grossly intact to finger rub. IX, X: palate elevates symmetrically. XI: shoulder shrug intact. XII: tongue is midline with normal movement; no atrophy or fasciculations. Motor: Normal tone (no rigidity or spasticity); no atrophy or fasciculations. Strength assessed as 5/5 for upper extremities b/l (shoulder abduction, elbow flexion/extension, wrist flexion/extension, abduction of fingers) and lower extremities b/l (hip flexion, knee flexion/extension, dorsiflexion/plantar flexion) Deep tendon reflexes: 1+ biceps, brachioradialis, triceps, patellar, Achilles b/ l Sensory: vibration, temperature, light touch, and proprioception intact b/l in upper and lower extremities. Coordination: normal [id number] without dysmetria; normal [id number]-yr-owrs without dysmetria; normal rapid alternating movements Gait: patient reported dizziness from pain medications and therefore, gait was not assessed for safety reasons. toes are downgoing with plantar stimulation b/l Diagnostics Laboratory Results Results Past 24 Hours Test 09/25/16 00:05 Range/Units White Blood Count 11.07 4.8-10.8 K/uL Red Blood Count 5.88 4.2-5.4 M/uL Hemoglobin 14.2 12.0-16.0 g/dL Hematocrit 42.9 37-47 % Mean Corpuscular Volume 73.0 80-100 fL Mean Corpuscular Hemoglobin 24.1 25-34 pg Mean Corpuscular Hemoglobin Concent 33.1 32-36 g/dl Platelet Count 354 130-400 K/uL Mean Platelet Volume 9.5 7.4-10.4 fL Neutrophils (%) (Auto) 59.4 % Lymphocytes (%) (Auto) 27.2 % Monocytes (%) (Auto) 9.1 % Eosinophils (%) (Auto) 3.3 % Basophils (%) (Auto) 0.5 % Neutrophils # (Auto) 6.57 1.4-6.5 K/uL Lymphocytes # (Auto) 3.01 1.2-3.4 K/uL Monocytes # (Auto) 1.01 0.11-0.59 K/uL Eosinophils # (Auto) 0.36 0-0.5 K/uL Basophils # (Auto) 0.06 0-0.2 K/uL RDW Standard Deviation 42.7 36.4-46.3 fL RDW Coefficient of Variation 16.5 11.5-14.5 % Immature Granulocyte % (Auto) 0.5 % Immature Granulocyte # (Auto) 0.06 0.00-0.02 K/uL Prothrombin Time 9.9 9.0-12.0 SECONDS Prothromb Time International Ratio 0.9 0.9-1.1 Activated Partial Thromboplast Time 26.0 21.0-31.0 SECONDS Partial Thromboplastin Ratio 1.0 Sodium Level 139 136-145 mmol/L Potassium Level 4.1 3.5-5.1 mmol/L Chloride Level 106 98-107 mmol/L Carbon Dioxide Level 23 21-32 mmol/L Anion Gap 10.0 3-11 mmol/L Blood Urea Nitrogen 24 7-18 mg/dl Creatinine 1.20 0.60-1.20 mg/dl Est Creatinine Clear Calc Drug Dose 50.6 ml/min Estimated GFR () 71.2 Estimated GFR (Non- 61.5 BUN/Creatinine Ratio 20.0 10-20 Random Glucose 83 70-99 mg/dl Calcium Level 9.1 8.5-10.1 mg/dl Troponin I < 0.015 0-0.045 ng/ml Thyroid Stimulating Hormone (TSH) 2.210 0.300-4.500 uIu/ml Human Chorionic Gonadotropin, Qual NEG NEG Diagnostic Radiology HEAD WITHOUT CONTRAST (CT) HISTORY: 18-year-old female presents with hypertension and headache with . TECHNIQUE: Multiple axial CT images of the head were obtained without contrast. CT DOSE: 537.48 mGy.cm COMPARISON: MRI 09/25/2016 and 03/23/2016. FINDINGS: No acute intracranial hemorrhage, midline shift, mass, large territorial ischemia or abnormal extra-axial collection. Ill-defined areas of low-attenuation are present within the cortical, subcortical and periventricular white matter of the occipital lobes are somewhat symmetric distribution, nicely seen on images 12 through 15 of the axial series. There also appears to be a ill-defined low-attenuation of the central selvin as seen on image 6 of the axial series, likely artifactual. 2 mm hyperattenuating focus of the right caudate nucleus appears to reflect calcification density and is nonspecific. The calvarium is intact. The paranasal sinuses, mastoid air cells, and middle ear cavities are clear. IMPRESSION: 1. No acute intracranial abnormality. 2. Low-attenuation involving the bilateral occipital lobes, unchanged from MRI compatible with encephalomalacia. Please see MRI study of same day for further details. The above report was generated using voice recognition software. It may contain grammatical, syntax or spelling errors. Electronically signed by: Robert Kendall M.D. 09/25/2016 7:07 AM Dictated Date/Time: 09/25/2016 6:58 AM MRI OF THE BRAIN AND PITUITARY WITHOUT A WITH GADOLINIUM CLINICAL HISTORY: Headache, hypertension. Abnormal head CT. History of crushing disease with tumor removal COMPARISON STUDY: 03/23/2016, head CT dated 09/25/2016 FINDINGS: Imaging was performed in the sagittal axial and coronal planes before and after the administration of 5.5 cc of intravenous Gadavist. No intra or extra-axial mass lesions are visualized. Axial diffusion-weighted images reveal chronic foci of increased signal within the occipital lobes. There is no corresponding decreased signal on the ADC map. The findings are felt to represent T2 shine through. There are no findings to indicate acute infarct. Proton density T2-weighted and FLAIR images reveal foci of increased T2 signal within the occipital lobes consistent with nonspecific encephalomalacia. There are no hemorrhagic products present. Postcontrast images reveal no pathologically enhancing intracranial masses. There are postsurgical changes involving the pituitary. The infundibulum is within the midline. The optic chiasm appears normal. No pathologic sellar masses are visualized. There is a stable 5 mm enhancing nodule within the superior lateral aspect of the right orbit. IMPRESSION: 1. No significant change compared to the prior MRI study 2. Foci of increased T2 signal within the posterior occipital lobes consistent with encephalomalacia 3. No evidence of recurrent pituitary tumor 4. Stable nonspecific 5 mm enhancing focus within the superior lateral aspect of the right orbit Electronically signed by: Justo Almonte M.D. 09/25/2016 6:51 AM Dictated Date/Time: 09/25/2016 6:43 AM Impression Assessment and Plan Ms. Franklin is a 26yo female with a medical history significant for Zacarias's disease, hypertension, and migraines who presented to the ED with a persistent headache for the past week, increasing frequency of migraines, and hypertensive urgency. Persistent headache of one week; increasing frequency of migraines --most likely due to acutely elevated BP/hypertensive urgency --will continue propranolol for migraine prophylaxis --will consider ketorolac for intermittent increases in headache pain Hypertensive urgency --will continue to monitor urine output, Cr, mental status, and level of headache pain --no signs of end organ damage --DDx for elevated BP: --Zacarias's disease recurrence; will consider ordering 24hr urine cortisol; 23:00 salivary cortisol --Pheochromocytoma; will consider ordering 24hr urinary fractionated metanephrines and catecholamines --renovascular disease/fibromuscular dysplasia; will consider u/s of renal arteries --drug induced hypertension is unlikely as patient denies any use aside from home medications Advanced Directives Existing Living Will: No Existing Power of Qlikview Developer: No
[2016-09-25] MEDS: KETOROLAC TROMETHAMINE 30 MG/ML VIAL IV PRN (16:21)
[2016-09-25] MEDS ORDERED: NURSING VERBAL MED ORDER ONE (18:15)
[2016-09-25] MEDS ORDERED: PROMETHAZINE HCL INJ 12.5 MG in SODIUM CHLORIDE 0.9% 50ML 50 ML IV PRN (18:15)
[2016-09-26] VITALS (12 sets, daily range): BP systolic 122–179; BP diastolic 75–133; PULSE 69–85; TEMP 36.7–36.9; O2SAT 95–100
[2016-09-26] MEDS: HydrALAZINE 10 MG TAB PO SCH (01:02)
[2016-09-26] MEDS: PROPRANOLOL HCL 20 MG TAB PO SCH (01:02)
[2016-09-26] MEDS: HYDROmorphone INJ 1 MG/ML SYR IV PRN ×5 (01:03→21:06)
[2016-09-26 06:03] LABS: HEMATOCRIT 42.6 % (37-47); MEAN CELL VOLUME 73.2 fL (80-100); MEAN CORPUSCULAR HEMOGLOBIN 24.6 pg (25-34); MEAN CORPUSCULAR HGB CONC 33.6 g/dl (32-36); MEAN PLATELET VOLUME 9.7 fL (7.4-10.4); PLATELET COUNT 376 K/uL (130-400); RED BLOOD COUNT 5.82 M/uL (4.2-5.4); WHITE BLOOD COUNT 15.53 K/uL (4.8-10.8)
[2016-09-26 06:25] LABS: BUN/CREATININE RATIO 20.8 (10-20); CALCIUM 8.2 mg/dl (8.5-10.1); CREATININE 1.7 mg/dl (0.60-1.20); POTASSIUM 4.1 mmol/L (3.5-5.1)
[2016-09-26] MEDS: KETOROLAC TROMETHAMINE 30 MG/ML VIAL IV PRN (06:36)
[2016-09-26] MEDS: ONDANSETRON INJ 2 MG/ML 2 ML VIAL IV PRN ×2 (06:37→18:16)
--- NOTE | 2016-09-26 07:59 | Neurology Progress Notes ---
Neurology Progress Note Date of Service Sep 26, 2016. Subjective The patient has had intermittent migrainous headaches overnight. The medication helps and currently her headache is a 7 out of 10, compared to yesterday when it was a 10 out of 10. She is up walking around and is not overly lightheaded or dizzy. She has no new vision problems. Her speech and mentation are normal. She has no new weakness or numbness of the arms or legs. BUN (35) and creatinine (1.7) is elevated compared to yesterday. White count is elevated at 15.5. Blood pressure this morning was 165/133. Objective Date Time Temp Pulse Resp B/P (MAP) Pulse Ox O2 Delivery O2 Flow Rate FiO2 09/26/16 07:21 165/133 (144) 09/26/16 07:18 36.8 70 17 179/113 (135) 98 Room Air 09/26/16 04:00 Room Air 09/26/16 03:32 36.8 85 18 133/98 (110) 96 09/26/16 00:01 Room Air 09/25/16 23:52 36.9 100 15 156/109 (125) 96 Room Air 09/25/16 20:00 Room Air 09/25/16 19:14 37.0 97 14 114/75 (88) 97 Room Air 09/25/16 17:48 36.9 19 149/121 (130) 96 Room Air 09/25/16 16:00 95 Room Air 09/25/16 15:18 36.5 77 18 168/122 (137) 97 Room Air 09/25/16 13:45 36.8 83 20 127/99 (108) 98 Room Air 09/25/16 12:45 85 17 122/104 (110) 96 Room Air 09/25/16 12:00 95 Room Air 09/25/16 11:49 36.7 90 16 139/104 (116) 95 Room Air 09/25/16 11:45 95 17 139/104 (116) 98 Room Air 09/25/16 10:45 36.8 100 16 144/100 (115) 98 Room Air 09/25/16 10:15 36.8 98 18 148/98 (115) 100 Room Air 09/25/16 09:45 36.8 90 18 160/125 (137) 100 Room Air 09/25/16 09:30 36.7 95 18 164/118 (133) 100 Room Air 09/25/16 09:15 36.6 91 15 186/142 (157) 99 Room Air 09/25/16 09:00 36.7 83 16 205/136 100 Room Air 09/25/16 09:00 36.7 83 18 205/136 (159) 100 Room Air 09/25/16 08:29 72 16 165/118 100 Last 24 Hours Test 09/26/16 05:32 White Blood Count 15.53 K/uL Red Blood Count 5.82 M/uL Hemoglobin 14.3 g/dL Hematocrit 42.6 % Mean Corpuscular Volume 73.2 fL Mean Corpuscular Hemoglobin 24.6 pg Mean Corpuscular Hemoglobin Concent 33.6 g/dl RDW Standard Deviation 44.0 fL RDW Coefficient of Variation 17.0 % Platelet Count 376 K/uL Mean Platelet Volume 9.7 fL Sodium Level 135 mmol/L Potassium Level 4.1 mmol/L Chloride Level 102 mmol/L Carbon Dioxide Level 22 mmol/L Anion Gap 11.0 mmol/L Blood Urea Nitrogen 35 mg/dl Creatinine 1.70 mg/dl Est Creatinine Clear Calc Drug Dose 35.4 ml/min Estimated GFR () 46.7 Estimated GFR (Non- 40.3 BUN/Creatinine Ratio 20.8 Random Glucose 107 mg/dl Calcium Level 8.2 mg/dl Exam: She is awake and alert. Speech is without aphasia or dysarthria. Mood and affect seem normal and appropriate. Thought processes seem intact as well. Extraocular eye muscles are intact without nystagmus. There is no facial droop. Neck is quite supple without pain. Coordination is normal in the arms. Strength is symmetrical the limbs. Her gait is stable and unremarkable. Current Inpatient Medications Medications (Trade) Dose Ordered Sig/[place]atar[place] Route Start Time Stop Time Status Last Admin Dose Admin Gadobutrol (Gadavist) 5.5 mmol UD PRN IV 09/25/16 05:15 09/29/16 05:14 Hydralazine HCl (Apresoline Tab) 20 mg BID PO 09/25/16 09:00 10/25/16 08:59 09/26/16 01:02 20 MG Miscellaneous Information (Order Awaiting Action) 1 ea QS N/A 09/25/16 16:00 10/25/16 15:59 Acetaminophen (Tylenol Tab) 650 mg Q4H PRN PO 09/25/16 07:45 10/25/16 07:44 Magnesium Hydroxide (Milk Of Magnesia Susp) 30 ml Q12H PRN PO 09/25/16 07:45 10/25/16 07:44 Ondansetron HCl (Zofran Inj) 4 mg Q6H PRN IV 09/25/16 07:45 10/25/16 07:44 09/26/16 06:37 4 MG Polyethylene (Miralax Powder Packet) 17 gm DAILY PRN PO 09/25/16 07:45 10/25/16 07:44 Ketorolac Tromethamine (Toradol Inj) 30 mg Q6H PRN IV 09/25/16 07:45 09/30/16 07:44 09/26/16 06:36 30 MG Hydromorphone HCl (Dilaudid Inj) 1 mg Q4 PRN IV 09/25/16 07:45 10/09/16 07:44 09/26/16 01:03 1 MG Hydromorphone HCl (Dilaudid Inj) 0.5 mg Q4 PRN IV 09/25/16 07:45 10/09/16 07:44 Hydralazine HCl (HydrALAZINE INJ) 20 mg Q4H PRN IV 09/25/16 07:45 10/25/16 07:44 09/25/16 16:21 20 MG Promethazine HCl 12.5 mg/Sodium Chloride 50.5 ml @ 202 mls/hr Q6H PRN IV 09/25/16 18:15 10/25/16 18:14 09/25/16 18:25 202 MLS/HR Propranolol HCl (Inderal Tab) 60 mg BID PO 09/26/16 09:00 10/25/16 08:59 UNV Hydralazine HCl (Apresoline Tab) 25 mg TID PO 09/26/16 09:00 10/26/16 08:59 UNV Impression 1. Severe, refractory migraine headache Patient has a history of intermittent migraines but these have been much worse over the last week. Currently, she responds some to IV medication. She has no encephalopathy, focal neurologic signs, or meningeal signs. Her migraines are being made worse by her hypertension. She has a positive history of migraines intermittently since early teen years and a strong positive family history. 2. Severe hypertension, consistent with hypertensive urgency. There is no encephalopathy MRI does not show PRES. The MRI changes are old and reflect some scarring or encephalomalacia 3. MRI of the brain showing bioccipital scarring/encephalomalacia. Etiology of this is not readily apparent but may be related to postradiation It is not changed from her previous MRI of March 2016 4. Zacarias's disease and other endocrine issues She has a history of pituitary microadenoma that was resected followed by radiation therapy. She is followed closely by endocrinology. 5. Elevated BUN and creatinine Plan 1. Although sumatriptan helps her migraines, this should be avoided as long as her blood pressure is elevated. This can be resumed once her blood pressure is normalized. 2. While she has hypertension I would continue with intermittent Toradol as needed and use narcotics intermittently but sparingly. 3. I would change her control pill to something with low or no estrogen as this can help decrease migraines. 4. In lieu of her headache and hypertension, it may be reasonable to check for pheochromocytoma with 24-hour urine for catecholamines including epinephrine, norepinephrine, metanephrine, dopamine, VMA, and 5-HIAA 5. I would consider propranolol (60 mg LA twice a day) or verapamil (180 mg SR each morning) studies for migraine prophylaxis. 6. Steroids could be considered for breaking this headache cycle but it may keep her blood pressure elevated. I would give the equivalent of prednisone 60 the first day, 40 the second day, and 20 of the third day. 7. Consider renal consultation for renal function and hypertension I spoke with regarding this case including differential diagnoses and treatment options.
[2016-09-26] MEDS: HydrALAZINE HCL 20 MG/ML VIAL IV PRN ×4 (08:07→19:26)
[2016-09-26] MEDS ORDERED: PROPRANOLOL HCL 20 MG TAB PO SCH (09:00)
--- NOTE | 2016-09-26 09:34 | DIAGNOSTIC IMAGING REPORT ---
DUPLEX RENAL ARTERY CLINICAL HISTORY: accelerated htn hypertension TECHNIQUE: Doppler ultrasound COMPARISON STUDY: None FINDINGS: Velocity characteristics are unremarkable. Impedance characteristics are unremarkable IMPRESSION: No evidence for renal arterial stenosis The above report was generated using voice recognition software. It may contain grammatical, syntax or spelling errors. Electronically signed by: Leon Deleon M.D. 09/26/2016 9:33 AM Dictated Date/Time: 09/26/2016 9:33 AM
--- NOTE | 2016-09-26 11:48 | Progress Note ---
Subjective Date of Service: Sep 26, 2016. Subjective pt has had a waxing and waning evening with pain, and hypertension, at times stating her headache was 7/10. NO new focal signs and in the process of collecting a 24 hour urine sample Problem List Medical Problems: (1) Hypertensive urgency Status: Acute (2) Migraine Status: Acute Review of Systems Constitutional: + fatigue, + problem reported (headache), No fever, No chills, No weakness Eyes: No worsening of vision, No eye pain Respiratory: No cough, No shortness of breath Cardiac: No chest pain, No edema Abdomen: No pain, No vomiting, No diarrhea Female : No dysuria, No urinary frequency Neurologic: No memory loss, No paralysis Psychiatric: + anxiety, No depression symptoms, No anhedonism Objective Vital Signs Date Time Temp Pulse Resp B/P (MAP) Pulse Ox O2 Delivery O2 Flow Rate FiO2 09/26/16 10:44 131/91 (104) 09/26/16 08:00 Room Air 09/26/16 07:21 165/133 (144) 09/26/16 07:18 36.8 70 17 179/113 (135) 98 Room Air 09/26/16 04:00 Room Air 09/26/16 03:32 36.8 85 18 133/98 (110) 96 09/26/16 00:01 Room Air 09/25/16 23:52 36.9 100 15 156/109 (125) 96 Room Air 09/25/16 20:00 Room Air 09/25/16 19:14 37.0 97 14 114/75 (88) 97 Room Air 09/25/16 17:48 36.9 19 149/121 (130) 96 Room Air 09/25/16 16:00 95 Room Air 09/25/16 15:18 36.5 77 18 168/122 (137) 97 Room Air 09/25/16 13:45 36.8 83 20 127/99 (108) 98 Room Air 09/25/16 12:45 85 17 122/104 (110) 96 Room Air 09/25/16 12:00 95 Room Air 09/25/16 11:49 36.7 90 16 139/104 (116) 95 Room Air 09/25/16 11:45 95 17 139/104 (116) 98 Room Air Physical Exam General Appearance: WD/WN, + mild distress Eyes: PERRL, EOMI Neck: supple, no JVD Respiratory/Chest: chest non-tender, lungs clear, normal breath sounds Cardiovascular: regular rate, rhythm, no murmur Abdomen: normal bowel sounds, non tender, soft, + pertinent finding (no bruits) Neurologic/Psychiatric: alert, oriented x 3 Laboratory Results Last 24 Hours Test 09/26/16 05:32 White Blood Count 15.53 K/uL Red Blood Count 5.82 M/uL Hemoglobin 14.3 g/dL Hematocrit 42.6 % Mean Corpuscular Volume 73.2 fL Mean Corpuscular Hemoglobin 24.6 pg Mean Corpuscular Hemoglobin Concent 33.6 g/dl RDW Standard Deviation 44.0 fL RDW Coefficient of Variation 17.0 % Platelet Count 376 K/uL Mean Platelet Volume 9.7 fL Sodium Level 135 mmol/L Potassium Level 4.1 mmol/L Chloride Level 102 mmol/L Carbon Dioxide Level 22 mmol/L Anion Gap 11.0 mmol/L Blood Urea Nitrogen 35 mg/dl Creatinine 1.70 mg/dl Est Creatinine Clear Calc Drug Dose 35.4 ml/min Estimated GFR () 46.7 Estimated GFR (Non- 40.3 BUN/Creatinine Ratio 20.8 Random Glucose 107 mg/dl Calcium Level 8.2 mg/dl Assessment and Plan 26-year-old female with hypertensive urgency and intractable headache history of migraines and pituitary disease Patient's laboratories continue to be stable, imaging studies of her brain did not show any new changes, Hypertension urgency, increase propranolol and keep b juan francisco to help also blunt some of her anxiety, change to LA and add hydralazine po Renal doppler is negative for RAI, 24 hour urine is underway Migraine, continue steroids and opiates iv, cannot use triptans due to htn acute renal failure, likely from Toradol will hold DVT prevention will be early ambulation.
[2016-09-26] MEDS: PROPRANOLOL HCL 60 MG LA CAP PO SCH (20:15)
[2016-09-27] MEDS: HYDROmorphone INJ 1 MG/ML SYR IV PRN (02:35)
[2016-09-27 04:03] VITALS: BP 129/94; PULSE 78; TEMP 36.7; O2SAT 95
[2016-09-27 07:04] VITALS: BP 142/102; PULSE 71; TEMP 36.9; O2SAT 96
--- NOTE | 2016-09-27 07:58 | Neurology Progress Notes ---
Neurology Progress Note Date of Service Sep 27, 2016. Subjective Patient believes she is a little better with her headache today. She slept a little better. Her headache is now 5 out of 10. The medication, as needed, helps. She still complains of lightheadedness with sitting up. In general, her blood pressure has been improved. Nursing notes that her blood pressure seems to come down more with pain medication doses than it does with blood pressure medication doses. She has no new problems. She denies confusion or new vision problems. She has no new weakness or numbness in the limbs Renal ultrasound showed no evidence of renal artery stenosis. Objective Date Time Temp Pulse Resp B/P (MAP) Pulse Ox O2 Delivery O2 Flow Rate FiO2 09/27/16 07:04 36.9 71 16 142/102 (115) 96 Room Air 09/27/16 04:03 36.7 78 18 129/94 (106) 95 Room Air 09/27/16 04:00 Room Air 09/26/16 23:59 Room Air 09/26/16 23:21 36.9 69 16 130/75 (93) 95 Room Air 09/26/16 20:00 Room Air 09/26/16 19:58 122/89 (100) 09/26/16 19:11 36.7 73 13 138/101 (113) 97 Room Air 09/26/16 16:20 132/104 (113) 09/26/16 16:07 Room Air 09/26/16 15:20 36.8 73 16 151/107 (122) 96 Room Air 09/26/16 13:24 127/89 (102) 09/26/16 12:23 160/108 (125) 09/26/16 12:01 36.7 71 16 165/115 (132) 100 Room Air 09/26/16 12:00 Room Air 09/26/16 10:44 131/91 (104) 09/26/16 08:00 Room Air Last 24 Hours Test 09/26/16 15:20 09/27/16 07:19 Exam: She is sleepy but easily aroused with voice. She has no aphasia or dysarthria. Mood and affect seems normal appropriate. Thought processes are intact. Extraocular muscles are intact without nystagmus. There is no facial droop. Coordination is normal in the arms. There is no tremor. Strength is symmetrical the limbs. Current Inpatient Medications Medications (Trade) Dose Ordered Sig/[place] Route Start Time Stop Time Status Last Admin Dose Admin Gadobutrol (Gadavist) 5.5 mmol UD PRN IV 09/25/16 05:15 09/29/16 05:14 Miscellaneous Information (Order Awaiting Action) 1 ea QS N/A 09/25/16 16:00 10/25/16 15:59 Acetaminophen (Tylenol Tab) 650 mg Q4H PRN PO 09/25/16 07:45 10/25/16 07:44 Magnesium Hydroxide (Milk Of Magnesia Susp) 30 ml Q12H PRN PO 09/25/16 07:45 10/25/16 07:44 Ondansetron HCl (Zofran Inj) 4 mg Q6H PRN IV 09/25/16 07:45 10/25/16 07:44 09/26/16 18:16 4 MG Polyethylene (Miralax Powder Packet) 17 gm DAILY PRN PO 09/25/16 07:45 10/25/16 07:44 Ketorolac Tromethamine (Toradol Inj) 30 mg Q6H PRN IV 09/25/16 07:45 09/30/16 07:44 09/26/16 06:36 30 MG Hydromorphone HCl (Dilaudid Inj) 1 mg Q4 PRN IV 09/25/16 07:45 10/09/16 07:44 09/27/16 02:35 1 MG Hydromorphone HCl (Dilaudid Inj) 0.5 mg Q4 PRN IV 09/25/16 07:45 10/09/16 07:44 Hydralazine HCl (HydrALAZINE INJ) 20 mg Q4H PRN IV 09/25/16 07:45 10/25/16 07:44 09/26/16 19:26 20 MG Promethazine HCl 12.5 mg/Sodium Chloride 50.5 ml @ 202 mls/hr Q6H PRN IV 09/25/16 18:15 10/25/16 18:14 09/25/16 18:25 202 MLS/HR Hydralazine HCl (Apresoline Tab) 25 mg TID PO 09/26/16 09:00 10/26/16 08:59 09/26/16 20:15 25 MG Propranolol HCl (Inderal [place]) 60 mg BID PO 09/26/16 21:00 10/26/16 20:59 09/26/16 20:15 60 MG Prednisone (PredniSONE TAB) 60 mg DAILY PO 09/26/16 10:45 10/26/16 10:44 09/26/16 11:59 60 MG Impression 1. Severe, refractory migraine headache Patient has a history of intermittent migraines but these have been much worse over the last week. Currently, she responds some to IV medication. She has no encephalopathy, focal neurologic signs, or meningeal signs. Her migraines are being made worse by her hypertension. She has a positive history of migraines intermittently since early teen years and a strong positive family history. 2. Severe hypertension, consistent with hypertensive urgency. There is no encephalopathy MRI does not show PRES. The MRI changes are old and reflect some scarring or encephalomalacia 3. MRI of the brain showing bioccipital scarring/encephalomalacia. Etiology of this is not readily apparent but may be related to postradiation It is not changed from her previous MRI of March 2016 4. [place]'s disease and other endocrine issues She has a history of pituitary microadenoma that was resected followed by radiation therapy. She is followed closely by endocrinology. 5. Elevated BUN and creatinine Today's results are pending. Toradol may be making her renal function worse. There is no renal artery stenosis by ultrasound Plan 1. Although sumatriptan helps her migraines, this should be avoided as long as her blood pressure is elevated. This can be resumed once her blood pressure is normalized. 2. In lieu of her renal function, avoid Toradol. 3. I would change her control pill to something with low or no estrogen as this can help decrease migraines. 4. 24-hour urine for catecholamines (including epinephrine, norepinephrine, metanephrine, dopamine, VMA, and 5-HIAA) is pending. 5. Consider long-acting propranolol (60 mg LA twice a day) or verapamil ( starting with 180 mg SR each morning) studies for migraine prophylaxis. 6. Steroids could be considered for breaking this headache cycle but it may keep her blood pressure elevated. I would give the equivalent of prednisone 60 the first day, 40 the second day, and 20 of the third day. 7. Consider renal consultation for renal function and hypertension
[2016-09-27] MEDS: PROPRANOLOL HCL 60 MG LA CAP PO SCH (08:46)
[2016-09-27] MEDS ORDERED: INDSR60 PO (09:38)
[2016-09-27] MEDS ORDERED: APR25 PO (09:38)
[2016-09-27] MEDS ORDERED: RXC5 PO (09:38)
[2016-09-27] MEDS ORDERED: PRED10TA PO (09:38)
--- NOTE | 2016-09-27 09:41 | Discharge Instructions ---
Discharge Instructions Date of Service Sep 27, 2016. Admission Reason for Admission: Hypertensive Urgency Discharge Discharge Diagnosis / Problem: accelerated htn, migraine Discharge Goals Goal(s): Diagnostic testing, Therapeutic intervention Activity Recommendations Activity Limitations: resume your previous activity . Current Hospital Diet Patient's current hospital diet: Regular Diet Discharge Diet Recommended Diet: Regular Diet Pending Studies Studies pending at discharge: no List of pending studies: 24 hour cathecholamine Medical Emergencies . Who to Call and When: Medical Emergencies: If at any time you feel your situation is an emergency, please call 911 immediately. . Non-Emergent Contact Non-Emergency issues call your: Primary Care Provider Call Non-Emergent contact if: temperature is above 101, your pain is unusual for you . . "Provider Documentation" section prepared by Yordy Bravo. . VTE Core Measure Inpt VTE Proph given/why not?: Treatment not indicated
[2016-09-27 09:49] LABS: BUN/CREATININE RATIO 24.9 (10-20); CALCIUM 8.6 mg/dl (8.5-10.1); CREATININE 1.5 mg/dl (0.60-1.20); MAGNESIUM 2.8 mg/dl (1.8-2.4); POTASSIUM 4.7 mmol/L (3.5-5.1)
[2016-09-27 10:17] VITALS: BP 141/102
--- NOTE | 2016-09-27 11:05 | Discharge Summary ---
Discharge Summary Date of Service Sep 27, 2016. Discharge Summary Admission Date: Sep 25, 2016 at 07:37 Discharge Date: Sep 27, 2016 Discharge Disposition: Home Principal Diagnosis: accelerated htn, migraine headache Consultations: Dr Aponte from neurology Medication Reconciliation New Medications: Oxycodone HCl (Oxycodone HCl) 5 Mg Tab 2 TABS PO Q6, #20 DOSE Prednisone Tab (Prednisone) 10 Mg Tab 10 MG PO UD, #42 TAB 4 pills a day for four days then 3 pills a day for four days then 2 pills a day for four days then 1 pill a day Hydralazine Hcl (Apresoline) 25 Mg Tab 25 MG PO TID, #90 TAB 6 Refills Propranolol HCl (Propranolol HCl ER) 60 Mg Cap 60 MG PO BID, #60 CAP 6 Refills Continued Medications: Desogestrel-Ethinyl Estradiol (Kimidess 0.15-0.02/0.01 mg (02/08)) 1 Tab Tab 1 TAB PO DAILY Misc Natural Products (Cortisol [employer] Specialist) 1 Tab Tab 100 MG PO BID Discontinued Medications: Hydralazine Hcl (Apresoline) 10 Mg Tab 20 MG PO BID, TAB Propranolol (Inderal) 20 Mg Tab 20 MG PO BID, TAB Discharge Exam Review of Systems: Constitutional: No fever, No chills Respiratory: No cough, No sputum Cardiovascular: No chest pain, No orthopnea, No PND, No edema Abdomen: No pain, No nausea, No vomiting, No diarrhea Neurologic: No memory loss, No paralysis, No weakness, No numbness/tingling , No vertigo, No balance problems Physical Exam: General Appearance: WD/WN, no apparent distress Eyes: PERRL, EOMI Respiratory/Chest: chest non-tender, lungs clear, normal breath sounds Cardiovascular: regular rate, rhythm, no murmur Abdomen / GI: normal bowel sounds, non tender, soft Hospital Course 26-year-old female with hypertensive urgency and intractable headache history of migraines and pituitary disease Patient's laboratories continue to be stable, imaging studies of her brain did not show any new changes, Hypertension urgency, I expect this pt to have some higher bp readings for the next few weeks, as long as we do not identify any organ strain such as ecg changes, renal distress of mental status changes, we should work slowly and steadily to improve her blood pressure while working her up for secondary htn, Renal doppler is negative for RAI, 24 hour urine is pending at time of discharge Migraine, continue steroids and opiates po, cannot use triptans due to htn acute renal failure, improved after holding toradol Total Time Spent: Greater than 30 minutes This includes examination of the patient, discharge planning, medication reconciliation, and communication with other providers. Discharge Instructions Please refer to the electronic Patient Visit Report (Discharge Instructions) for additional information.
[2016-09-27 11:30] VITALS: BP 141/102; PULSE 71; TEMP 36.9; O2SAT 96
== END 2016-09-27 12:01 | disposition home or self-care (01) | DRG 305 ==
LOC: C.EDB 23:43 → C.2E 09-25 07:37 → EDBEDREQ 09-25 07:43 → ENRESERV 09-25 07:53
PROVIDERS: ADMIT Internal Medicine; ATTEND Internal Medicine
DX: I16.0 Hypertensive urgency (principal); E24.9 Cushing's syndrome, unspecified; N17.9 Acute kidney failure, unspecified; G43.019 Migraine without aura, intractable, without status migrainosus; T45.1X5A Adverse effect of antineoplastic and immunosuppressive drugs, initial encounter; Y92.230 Patient room in hospital as the place of occurrence of the external cause; L91.0 Hypertrophic scar; R94.4 Abnormal results of kidney function studies; G93.89 Other specified disorders of brain; E78.5 Hyperlipidemia, unspecified; M81.0 Age-related osteoporosis without current pathological fracture; Z86.69 Personal history of other diseases of the nervous system and sense organs; Z82.49 Family history of ischemic heart disease and other diseases of the circulatory system; Z92.3 Personal history of irradiation; Z86.39 Personal history of other endocrine, nutritional and metabolic disease; Z79.3 Long term (current) use of hormonal contraceptives; Z79.899 Other long term (current) drug therapy